=== PATIENT | female | born 2000 | race Two or more races ===

== ENCOUNTER 2024-10-21 15:06 | Outpatient (CLI) | payer MEDICAID, SELFPAY ==
[2024-10-21] VITALS (7 sets, daily range): BP systolic 131–141; BP diastolic 72–88; PULSE 81–92; RESP 18; TEMP 36.7; BMI 40.6
--- NOTE | 2024-10-21 15:10 | XR_ITS ---
Examination: Biophysical profile, ultrasound Date and time of exam: October 21, 2024 1518 hours INDICATIONS: -induced hypertension today Technique: Multiple transabdominal sonographic images of the pelvis abdomen obtained. Attention is directed to the breathing movement, gross body movement, amniotic fluid volume and tone. Findings: Amniotic fluid index 17.6 cm Total biophysical profile is 8 of 8. breathing movement is 2. Gross body movement is 2. tone is 2. Qualitative amniotic fluid volume is 2 Impression: Biophysical profile is 8 of 8.
[2024-10-21 16:01] LABS: Collection Type, Urine Clean Catch
[2024-10-21 16:21] LABS: Bilirubin,Urine Negative (Negative); Blood,Urine Negative (Negative); Clarity,Urine Turbid (Clear/Hazy); Color,Urine Yellow (Lt Yel-Yel); Glucose, Urine 4+ (Negative); Ketones,Urine Negative (Negative); Leukocyte Esterase,Urine Positive (Negative); Nitrite,Urine Negative (Negative); Protein,Urine Trace (Neg - Trace); RBC,Urine 3 /hpf (0-3); Specific Gravity,Urine 1.022 (1.001-1.035); Squamous Epithelial Cell,Urine 14 /hpf (0-5); Urobilinogen,Urine Negative mg/dL (0.0-1.0); WBC,Urine 27 /hpf (0-5)
[2024-10-21 16:33] LABS: Basophils % (Auto) 0 % (0-2.5); Eosinophils # (Auto) 0.1 Thou/mm3 (0.0-0.5); Eosinophils % (Auto) 1 % (0-10); Hemoglobin 11.2 g/dL (12.0-16.0); Immature Granulocytes % (Auto) 0 % (0-0); Immature Granulocytes Auto 0.02 Thou/mm3 (0.00-0.00); Lymphocytes # (Auto) 1.6 Thou/mm3 (1.0-4.8); Lymphocytes % (Auto) 22 % (10-50); Mean Corpuscular Hemoglobin 27.8 pg (25.0-35.0); Mean Corpuscular Volume 79 fL (80-100); Monocytes # (Auto) 0.6 Thou/mm3 (0.0-0.8); Monocytes % (Auto) 8 % (0-12); Neutrophils # (Auto) 5.1 Thou/mm3 (1.8-7.7); Neutrophils % (Auto) 69 % (37-80); Nucleated Red Blood Cell % 0 /100 WBC (0); Platelet Count 280 Thou/mm3 (140-440); RDW Standard Deviation 38.2 fL (36.4-46.3); Red Blood Count 4.03 Miln/mm3 (4.00-5.20); White Blood Count 7.3 Thou/mm3 (3.6-11.0)
[2024-10-21 16:51] LABS: INR 0.9 (0.9-1.3); Partial Thromboplastin Time 24.5 Seconds (22.0-36.0); Prothrombin Time 10.3 Seconds (9.0-12.2)
[2024-10-21 16:52] LABS: Alanine Aminotransferase 13 U/L (10-49); Albumin, Serum 3.8 gm/dL (3.5-5.0); Albumin/Globulin Ratio 1.5 (1.2-2.2); Alkaline Phosphatase 93 U/L (46-116); Anion Gap 10 (7-16); Aspartate Amino Transferase 17 U/L (0-34); BUN/Creatinine Ratio 14 Ratio (12-20); Bilirubin,Total 0.3 mg/dL (0.3-1.2); Blood Urea Nitrogen 7 mg/dL (9-23); Calcium 8.8 mg/dL (8.3-10.6); Carbon Dioxide 22.9 mMol/L (20.0-31.0); Chloride 104 mMol/L (98-107); Creatinine (Component) 0.5 mg/dL (0.6-1.3); Estimated Creatinine Clearance 211.2 mL/min (>60); Globulin 2.6 gm/dL (2.3-3.5); Glucose 125 mg/dL (74-106); LDH (Lactate Dehydrogenase) 149 U/L (120-246); Osmolality,Calculated 272 (275-295); Potassium 4.2 mMol/L (3.4-5.1); Sodium 137 mMol/L (136-145); Total Protein 6.4 gm/dL (5.7-8.2); Uric Acid 4.7 mg/dL (3.1-7.8); eGFR > 60 See Note
[2024-10-21 19:04] LABS: Fibrinogen 646 mg/dL (175-375)
== END 2024-10-21 17:10 | disposition home or self-care (01) ==
LOC: S4S1 15:06 → S4SX 15:07
PROVIDERS: Referring Provider Student in an Organized Health Care Education/Training Program; Visit Provider Student in an Organized Health Care Education/Training Program
DX: O26.893 Other specified pregnancy related conditions, third trimester (principal); R03.0 Elevated blood-pressure reading, without diagnosis of hypertension; Z3A.31 31 weeks gestation of pregnancy
CPT/HCPCS: 36415; 59025; 76819; 80053; 81001; 83615; 84550; 85025; 85384; 85610; 85730

== ENCOUNTER 2024-10-28 16:14 | Observation (INO) | payer MEDICAID, SELFPAY ==
[2024-10-28] VITALS (99 sets, daily range): BP systolic 116–176; BP diastolic 57–97; PULSE 68–97; RESP 16–99; TEMP 36.7–36.8; O2SAT 96–100; BMI 40.4
--- NOTE | 2024-10-28 16:29 | XR_ITS ---
Examination: Biophysical profile, ultrasound Date and time of exam: October 28, 2024 1713 hours INDICATIONS: Gestational diabetes diagnosis, elevated blood pressure diagnosis, -induced hypertension Technique: Multiple transabdominal sonographic images of the pelvis abdomen obtained. Attention is directed to the breathing movement, gross body movement, amniotic fluid volume and tone. Findings: Amniotic fluid index 20.2 cm Total biophysical profile is 8 of 8. breathing movement is 2. Gross body movement is 2. tone is 2. Qualitative amniotic fluid volume is 2 Impression: Biophysical profile is 8 of 8.
[2024-10-28 17:20] LABS: Collection Type, Urine Clean Catch
[2024-10-28 17:20] LABS: Basophils % (Auto) 0 % (0-2.5); Eosinophils % (Auto) 0 % (0-10); Hematocrit 33.9 % (36.0-46.0); Hemoglobin 11.7 g/dL (12.0-16.0); Immature Granulocytes % (Auto) 1 % (0-0); Immature Granulocytes Auto 0.04 Thou/mm3 (0.00-0.00); Lymphocytes # (Auto) 1.5 Thou/mm3 (1.0-4.8); Lymphocytes % (Auto) 19 % (10-50); Mean Corpuscular HGB Conc 34.5 g/dl (31.0-37.0); Mean Corpuscular Hemoglobin 28.1 pg (25.0-35.0); Mean Corpuscular Volume 81 fL (80-100); Monocytes # (Auto) 0.6 Thou/mm3 (0.0-0.8); Monocytes % (Auto) 8 % (0-12); Neutrophils # (Auto) 5.9 Thou/mm3 (1.8-7.7); Neutrophils % (Auto) 73 % (37-80); Nucleated Red Blood Cell % 0 /100 WBC (0); Platelet Count 346 Thou/mm3 (140-440); RDW Standard Deviation 40.4 fL (36.4-46.3); Red Blood Count 4.17 Miln/mm3 (4.00-5.20); White Blood Count 8.2 Thou/mm3 (3.6-11.0)
[2024-10-28 17:35] LABS: Bilirubin,Urine Negative (Negative); Blood,Urine Trace (Negative); Clarity,Urine Clear (Clear/Hazy); Color,Urine Yellow (Lt Yel-Yel); Glucose, Urine Negative (Negative); Ketones,Urine 2+ (Negative); Leukocyte Esterase,Urine Positive (Negative); Nitrite,Urine Negative (Negative); Protein,Urine 1+ (Neg - Trace); RBC,Urine 1 /hpf (0-3); Specific Gravity,Urine 1.029 (1.001-1.035); Squamous Epithelial Cell,Urine 13 /hpf (0-5); WBC,Urine 11 /hpf (0-5)
[2024-10-28 17:43] LABS: INR 0.9 (0.9-1.3); Partial Thromboplastin Time 24.7 Seconds (22.0-36.0); Prothrombin Time 10.3 Seconds (9.0-12.2)
[2024-10-28 18:16] LABS: Alanine Aminotransferase 12 U/L (10-49); Albumin, Serum 4.2 gm/dL (3.5-5.0); Albumin/Globulin Ratio 1.8 (1.2-2.2); Alkaline Phosphatase 102 U/L (46-116); Anion Gap 11 (7-16); Aspartate Amino Transferase 27 U/L (0-34); BUN/Creatinine Ratio 17 Ratio (12-20); Bilirubin,Total 0.3 mg/dL (0.3-1.2); Blood Urea Nitrogen 10 mg/dL (9-23); Calcium 9.4 mg/dL (8.3-10.6); Calcium (Corrected) 9.4 mg/dL (8.5-10.1); Carbon Dioxide 20.9 mMol/L (20.0-31.0); Chloride 103 mMol/L (98-107); Creatinine (Component) 0.6 mg/dL (0.6-1.3); Estimated Creatinine Clearance 175.3 mL/min (>60); Globulin 2.4 gm/dL (2.3-3.5); Glucose 83 mg/dL (74-106); LDH (Lactate Dehydrogenase) 175 U/L (120-246); Osmolality,Calculated 268 (275-295); Potassium 4.6 mMol/L (3.4-5.1); Sodium 135 mMol/L (136-145); Total Protein 6.6 gm/dL (5.7-8.2); Uric Acid 5.2 mg/dL (3.1-7.8); eGFR > 60 See Note
[2024-10-28 19:07] LABS: Fibrinogen 620 mg/dL (175-375)
[2024-10-28] MEDS: LABETALOL 100 MG TABLET 200 MG PO (19:35)
--- NOTE | 2024-10-28 20:49 | PD.LDHP ---
Documentation for date of: 10/28/24 OB Labor/Induct. HPI History of Present Illness History of present illness: 24 y/o @32W6D, was sent from clinic for BP measurements. Pt is a chronic HTN, admits of not being regularly taking [id number] BID which was prescribed by her midwive. Denies any headache, SOB, epigastric pain. Patient also was started on metformin for GDM. No contraction leaking bleeding History of Present Dating criteria: LMP confirmed by 1st trimester US Adequate Care: Yes Labs Narrative: GTT abnormal preclampsia labs wnl( incraese in Liver enzymes but not double) Meds Home Medications and Allergies Home Medications ?Medication ?Instructions ?Recorded ?Confirmed ?Type folic acid 1 mg tablet 1 mg PO QDAY 10/28/24 10/28/24 History labetalol 100 mg tablet 100 mg PO BID 10/28/24 10/28/24 History metformin 500 mg tablet 500 mg PO QDAY 10/28/24 10/28/24 History pren vit comb.1-iron cb-FA-DSS 90 1 tab PO QDAY 10/28/24 10/28/24 History mg-1 mg-50 mg tablet Allergies Allergy/AdvReac Type Severity Reaction Status Date / Time NKA Allergy Unknown Uncoded 10/28/24 16:49 OB Exam Physical Exam Vital signs: Temp Pulse Resp BP Pulse Ox 98.0 F 89 16 139/81 H 98 10/28/24 16:15 10/28/24 20:29 10/28/24 16:15 10/28/24 20:29 10/28/24 20:47 Constitutional Constitutional: no acute distress Routine HEENT Exam Head: Present normocephalic and atraumatic Eye: Present EOMI and PERRL ENT: Present mucous membranes moist Routine Neck Exam Neck: Present supple and trachea midline Routine Cardiovascular Exam Cardiovascular: Present RRR Routine Abdominal Exam Abdominal: Present soft and normoactive bowel sounds Detailed Labor and Delivery Exam Comments: 1638 audible prolonged decel by the triage nurse however after that the FHT are category 1 BPP 8/8 Routine Extremities Exam Extremities: Present full ROM Routine Skin Exam Skin: Present intact, dry and warm Routine Neurological Exam Neurological: Present alert, oriented X3 and CN II-XII intact Routine Psychiatric Exam Psychiatric: Present normal affect and normal thought process OB Results Labs 10/28/24 17:11 01/28/25 17:11 Labs: Short CBC 10/28/24 Range/Units 17:11 WBC 8.2 (3.6-11.0) Thou/mm3 Hgb 11.7 L (12.0-16.0) g/dL Hct 33.9 L (36.0-46.0) % Plt Count 346 D (140-440) Thou/mm3 BMP 10/28/24 17:11 Sodium 135 L Potassium 4.6 Chloride 103 Carbon Dioxide 20.9 BUN 10 Creatinine 0.6 Glucose 83 Calcium 9.4 Liver Function 10/28/24 Range/Units 17:11 Total Bilirubin 0.3 (0.3-1.2) mg/dL AST 27 (0-34) U/L ALT 12 (10-49) U/L Alkaline Phosphatase 102 (46-116) U/L Albumin 4.2 (3.5-5.0) gm/dL Urine 10/28/24 Range/Units 16:40 Urine Color Yellow (Lt Yel-Yel) Urine Clarity Clear (Clear/Hazy) Urine pH 6.0 (5.0-7.0) Ur Specific [place] 1.029 (1.001-1.035) Urine Protein 1+ A (Neg - Trace) Urine Glucose (UA) Negative (Negative) Impressions Impression: 24 Y/O @32w6d, admitted for observation CHTN, labetalol increased to 200 BID Questionable Severe BPx2 ( Cuff size inappropriate) preclampsia lab wnl GDM on metformin OB Assessment & Plan Additional Plan Additional Plan Comment: BP monitoring Continuos FHT monitoring
[2024-10-28] MEDS: metFORMIN 500 MG TABLET PO (21:12)
[2024-10-29] VITALS (112 sets, daily range): BP systolic 112–155; BP diastolic 56–86; PULSE 67–90; RESP 16; TEMP 36.7; O2SAT 92–100
[2024-10-29] MEDS: LABETALOL 100 MG TABLET 200 MG PO (04:00)
--- NOTE | 2024-10-29 07:57 | ESPR_ITS ---
Documentation for date of: 10/29/24 OB Labor Progress Note Pelvic Exam Comments: Pelvic exam deferred Contractions Contraction duration: None Status status: Category l Comments: Strip reviewed since admission baby is 130s and reactive with 15 x 15 beat accelerations. Appropriate for gestational age. 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 admitted overnight managed by Dr. Montanez 23-hour obs for an audible deceleration. She had an ultrasound revealing an GARRICK of 20 biophysical profile of 8/8 her blood pressures have stabilized overnight her labs are normal the baby's continuous heart tracing is been reactive she will be discharged home at this point. Patient will follow-up in the clinic. She is on labetalol 200 mg p.o. twice daily.
--- NOTE | 2024-10-29 08:02 | PD.LDDS ---
DS: Providers Provider Date of admission: 10/28/24 16:14 Primary care physician: Physician No Primary/Family Admitting Provider: Katiuska Troy MD Attending Provider on Admission: Beryl Werner MD Attending Provider on DC: Beryl Werner MD Discharging Provider: Beryl Werner MD Anticipated date of discharge: 10/29/24 DS: Diagnosis Discharge Diagnosis (1) 32 weeks gestation of : Status: Acute (2) Gestational diabetes mellitus (GDM): Status: Acute (3) induced hypertension, antepartum: Status: Acute Problem List Completed Was Problem List Reviewed/Reconciled?: Yes Summary/Hosp Course Brief History: 24 y/o @32W6D, was sent from clinic for BP measurements. Pt is a chronic HTN, admits of not being regularly taking BID which was prescribed by her midwive. Denies any headache, SOB, epigastric pain. Patient also was started on metformin for GDM. No contraction leaking bleeding Status at Discharge Functional status at discharge: independent ambulation Overall status at discharge: patient is back to baseline Time Spent with Patient Time attestation: Total time spent providing and/or coordinating discharge services: Time spent: Less than 30 minutes Specific discharge activities: Patient was monitored overnight with continuous monitoring for approximately 14 hours. During her observation stay she had lab work performed biophysical profile and ultrasound for an ultrasound for fluid. Patient's patient was started on labetalol for elevated blood pressure and this was called in by Dr. Troy. She was given strict discharge instructions including to return for severe headaches, visual changes, right upper quadrant pain, shortness of breath or chest pain. Patient was to come back in for decreased movement. She was discharged home to be followed up very closely in clinic and here on labor and delivery with more frequent visits and nonstress tests and ultrasounds. She was told -induced hypertension can progress to mild or severe preeclampsia. At this time there are no signs of preeclampsia present. Patient was told she might have to be delivered early induced or have a if she becomes preeclamptic. All questions were answered. Exam Vital Signs Temp Pulse Resp BP Pulse Ox 98.1 F 74 16 112/56 L 99 10/29/24 07:23 10/29/24 07:54 10/29/24 04:00 10/29/24 07:54 10/29/24 07:56 Narrative Exam Patient is alert and oriented x 3 fundus is firm nontender. Remainder of exam deferred at this time. Discharge Plan Plan Patient Disposition: HOME (Self Care) Patient condition on transfer: Stable Prescriptions/Referrals Prescriptions/Med Rec: New metformin 500 mg Tablet 500 mg PO BIDAC Qty: 90 0RF labetalol 100 mg Tablet 200 mg PO TID Qty: 90 0RF Continued folic acid 1 mg tablet 1 mg PO QDAY No Action ciprofloxacin HCl [Cipro] 500 mg tablet 500 mg PO BID Qty: 14 0RF metformin 500 mg tablet 500 mg PO QDAY labetalol 100 mg tablet 100 mg PO BID pren vit comb.1-iron cb-FA-DSS 90-1-50 mg tablet 1 tab PO QDAY Referrals: No Primary/Family,Physician [Primary Care Provider] - Patient/Caregiver Discharge Instructions Education Materials: Gestational Hypertension Print Language: Venezuelan Stand Alone Forms: Grace Award Info., Patient Portal Info Letter, Work/Release Restrictions Discharge Order Discharge Orders: Discharge (Routine); Ordered 10/29/24 Ordered By: Beryl Werner Planned Discharge Date 10/29/24 (2) Gestational diabetes mellitus (GDM) Qualifiers: Gestational diabetes mellitus control: oral hypoglycemic-controlled Trimester: third trimester Qualified Code(s): O24.415 - Gestational diabetes mellitus in , controlled by oral hypoglycemic drugs
== END 2024-10-29 08:40 | disposition home or self-care (01) ==
PROVIDERS: Nurse Practitioner Women's Health; Admitting Provider Student in an Organized Health Care Education/Training Program; Visit Provider Obstetrics & Gynecology
DX: O13.3 Gestational [pregnancy-induced] hypertension without significant proteinuria, third trimester (principal); O24.415 Gestational diabetes mellitus in pregnancy, controlled by oral hypoglycemic drugs; Z3A.32 32 weeks gestation of pregnancy
CPT/HCPCS: 36415; 59025; 59899; 76819; 80053; 81001; 83615; 84550; 85025; 85384; 85610; 85730; A9270

== ENCOUNTER 2024-11-07 22:25 | Emergency (ER) | payer MEDICAID, SELFPAY ==
[2024-11-07 22:27] VITALS: BMI 39.4
[2024-11-07 23:16] VITALS: BP 135/85; PULSE 89; RESP 20; TEMP 36.9; O2SAT 99
[2024-11-07] MEDS: HYDROcodone/APAP 5/325 TABLET 1 TAB PO (23:40)
--- NOTE | 2024-11-08 01:12 | PD.EDEAR ---
ED Ear RME/HPI General Chief complaint: Ear Stated complaint: LEFT EAR PAIN Time Seen by Provider: 11/07/24 23:32 Arrival date/time: 11/07/24 22:25 24F with no significant PMH presents to ED with several days of L ear pain. Patient has been taking amoxicillin. Patient is currently and could only take Tylenol, which is not enough. Limitations: no limitations Related Data Home Medications ?Medication ?Instructions ?Recorded ?Confirmed folic acid 1 mg tablet 1 mg PO QDAY 10/28/24 10/28/24 labetalol 100 mg tablet 100 mg PO BID 10/28/24 10/28/24 metformin 500 mg tablet 500 mg PO QDAY 10/28/24 10/28/24 pren vit comb.1-iron cb-FA-DSS 90 1 tab PO QDAY 10/28/24 10/28/24 mg-1 mg-50 mg tablet Previous Rx's ?Medication ?Instructions ?Recorded ciprofloxacin HCl 500 mg tablet 500 mg PO BID #14 tabs 07/03/24 (Cipro) labetalol 100 mg tablet 200 mg (2 x 100 mg) PO TID #90 tabs 10/29/24 metformin 500 mg tablet 500 mg PO BIDAC #90 tabs 10/29/24 Allergies Allergy/AdvReac Type Severity Reaction Status Date / Time No Known Allergies Allergy Unverified 10/29/24 08:53 Review of Systems Review of Systems Systems Reviewed: All systems reviewed, normal except as documented Constitutional Constitutional: Reports system reviewed and no additional complaints, except as documented, Denies fever(s) and Denies headache(s) ENT Ears, Nose, Mouth, and Throat: Reports as per HPI, Denies disequilibrium, Reports otalgia and Denies headache(s) Cardiovascular Cardiovascular: Reports system reviewed and no additional complaints, except as documented, Denies chest pain and Denies dyspnea Respiratory Respiratory: Reports system reviewed and no additional complaints, except as documented, Denies cough and Denies dyspnea Gastrointestinal Gastrointestinal: Reports system reviewed and no additional complaints, except as documented, Denies abdominal pain, Denies nausea and Denies vomiting Neurologic Neurologic: Reports system reviewed and no additional complaints, except as documented, Denies confusion, Denies disequilibrium and Denies headache(s) Psychiatric Psychiatric: Denies confusion Past Medical History Social History SMOKING STATUS: Never smoker ED Exam General Limitations: Present no limitations General appearance: Present alert and in no apparent distress Head Head exam: Present atraumatic Eye Eye exam: Present normal appearance, PERRL and EOMI ENT ENT exam: Present normal oropharynx and mucous membranes moist Expanded ENT Exam TM/Canal exam: Left TM: erythema and bulging Neck Neck exam: Present normal inspection, full ROM and trachea midline Chest Chest inspection: Present normal inspection and symmetric chest wall rise Respiratory Respiratory exam: Present normal lung sounds bilaterally Cardiovascular Cardiovascular exam: Present regular rate, normal rhythm and normal heart sounds Abdominal Exam Abdominal exam: Present soft and normal bowel sounds Extremities Exam Extremities exam: Present normal inspection and full ROM Back Exam Back exam: Present normal inspection and full ROM Neurological Exam Neurological exam: Present alert, oriented X3 and CN II-XII intact Psychiatric Psychiatric exam: Present normal affect and normal mood Skin Skin exam: Present warm, dry, intact and normal color Course Quality Measures none Orders Category Date Time Status HYDROcodone*/APAP 5/325 [[place] 5/325] Med 11/07/24 23:33 Discontinued 1 tab PO X1 ONE Vital Signs Vital signs: Vital Signs Temperature 98.5 F 11/07/24 23:16 Pulse Rate 89 11/07/24 23:16 Respiratory Rate 20 11/07/24 23:16 Blood Pressure 135/85 H 11/07/24 23:16 Pulse Oximetry (%) 99 11/07/24 23:16 Oxygen Delivery Method Room Air 11/07/24 23:16 O2 at 99% on RA and WNLs Ear MDM Narrative MDM Narrative:: 24F with no significant PMH presents to ED with several days of L ear pain. Patient has been taking amoxicillin. Patient is currently and could only take Tylenol, which is not enough. Physical exam reveals L red and bulging TM, but otherwise clear ENT and lungs. Patient is afebrile, calm, and alert. Patient is okay with single dose of [place]. Patient data External records reviewed:: [facility] previous records Clinical information provided by:: patient Social determinants that could affect healthcare access:: none Patient has the following chronic illnesses:: none How is presenting disease/condition affected by chronic disease/condition?: no chronic disease Evaluation data The following diagnostics were reviewed and interpreted by me:: other (specify) (none) Lab and/or radiology exams considered but not ordered:: not ordered Interpretation Summary: n/a Medications / Prescriptions Medications or Prescriptions considered but not ordered:: ordered Medication administrations:: Medication Administration History Discontinued Medications Hydrocodone Bitart/Acetaminophen (Hydrocodone/Apap 5/325 Tablet) 1 tab PO X1 ONE Stop: 11/07/24 23:34 Last Admin: 11/07/24 23:40 Dose: 1 tab Documented By: HALIEL above Consultations Consultation(s) initiated? (list below): No Diagnosis Ear Differential Diagnosis: otitis externa, otitis media, foreign body in ear, ruptured TM and cerumen impaction Most likely diagnosis given after review of the tests above:: OM Admission Indicated Admission indicated?: not indicated Admission Request Was there a request for admission?: No Disposition Plan Disposition Plan: Discharge Discharge Attestation Discharge Attestation: The patient and all family members were given an opportunity to ask questions and understood the discharge instructions. Discharge instructions specifically effects, indications for sooner follow up or return to the emergency department, and the expected course of current diagnosis. Patient condition: Stable Discharge Plan Plan Patient Disposition: HOME (Self Care) Disposition Comment: Stable Prescriptions/Referrals Prescriptions/Med Rec: No Action ciprofloxacin HCl [Cipro] 500 mg tablet 500 mg PO BID Qty: 14 0RF metformin 500 mg tablet 500 mg PO QDAY labetalol 100 mg tablet 100 mg PO BID folic acid 1 mg tablet 1 mg PO QDAY pren vit comb.1-iron cb-FA-DSS 90-1-50 mg tablet 1 tab PO QDAY metformin 500 mg Tablet 500 mg PO BIDAC Qty: 90 0RF labetalol 100 mg Tablet 200 mg PO TID Qty: 90 0RF Problem List Clinical Impression: Otitis media Patient/Caregiver Discharge Instructions Additional Instructions: Please follow-up with PCP within 24-48 hours and return immediately if symptoms worsen. Finish ABX. Print Language: Tamazight Stand Alone Forms: Patient Portal Info Letter PA/DRAWER MAKER Supervising Physician FREDERIC/DRAWER MAKER Supervising Physician: Dr. Zacarias
== END 2024-11-07 23:41 | disposition home or self-care (01) ==
LOC: SERX 11-08 01:57
PROVIDERS: Emergency Provider Emergency Medicine; PCP Family Medicine
DX: O99.891 Other specified diseases and conditions complicating pregnancy (principal); H66.92 Otitis media, unspecified, left ear
CPT/HCPCS: 99283; A9270

== ENCOUNTER 2024-11-13 09:57 | Outpatient (RCR) | payer MEDICAID, SELFPAY ==
--- NOTE | 2024-11-10 10:27 | XR_ITS ---
Examination: Biophysical profile, ultrasound Date and time of exam: November 10, 2024 1033 hours INDICATIONS: -induced hypertension diagnoses, diagnosis gestational diabetes Technique: Multiple transabdominal sonographic images of the pelvis abdomen obtained. Attention is directed to the breathing movement, gross body movement, amniotic fluid volume and tone. Findings: Amniotic fluid index 9.0 cm Total biophysical profile is 8 of 8. breathing movement is 2. Gross body movement is 2. tone is 2. Qualitative amniotic fluid volume is 2 Impression: Biophysical profile is 8 of 8.
[2024-11-10 11:33] VITALS: BP 137/82; PULSE 89; RESP 18; TEMP 36.7
--- NOTE | 2024-11-13 10:12 | XR_ITS ---
Examination: Biophysical profile, ultrasound Date and time of exam: November 13, 2024 1105 hours INDICATIONS: Diagnosis -induced hypertension, diagnosis gestational diabetes Technique: Multiple transabdominal sonographic images of the pelvis abdomen obtained. Attention is directed to the breathing movement, gross body movement, amniotic fluid volume and tone. Findings: Amniotic fluid index 12.5 cm Total biophysical profile is 8 of 8. breathing movement is 2. Gross body movement is 2. tone is 2. Qualitative amniotic fluid volume is 2 Impression: Biophysical profile is 8 of 8.
[2024-11-13 12:34] VITALS: BP 127/74; PULSE 88; RESP 18; TEMP 36.7
== END 2024-11-13 23:59 | disposition home or self-care (01) ==
LOC: S4S1 09:57
PROVIDERS: PCP Family Medicine; Referring Provider Nurse Practitioner Women's Health; Visit Provider Nurse Practitioner Women's Health
DX: O13.3 Gestational [pregnancy-induced] hypertension without significant proteinuria, third trimester (principal); Z3A.35 35 weeks gestation of pregnancy
CPT/HCPCS: 59025; 76819

== ENCOUNTER 2024-11-17 02:41 | Inpatient (IN) | payer MEDICAID, SELFPAY ==
[2024-11-17] VITALS (20 sets, daily range): BP systolic 129–171; BP diastolic 69–92; PULSE 66–799; RESP 16–98; TEMP 36.6–36.9; O2SAT 98–99; BMI 39.6
[2024-11-17 04:15] LABS: ROM Kit Lot # 57809118; ROM Swab Mixed By: MARTB3; Swb Mxed in Solvent 1 min? Yes
[2024-11-17 04:16] LABS: Rupture of Fetal Membranes Positive (Negative)
[2024-11-17] MEDS: Ampicillin Inj 2,000 MG in SODIUM CHLORIDE 0.9% (P) 100 ML 200 MG IV (05:15)
[2024-11-17] MEDS: RINGERS LACTATED 1000 ML 1,000 ML 125 ML IV (05:15)
[2024-11-17 05:52] LABS: Basophils % (Auto) 0 % (0-2.5); Eosinophils # (Auto) 0.1 Thou/mm3 (0.0-0.5); Eosinophils % (Auto) 1 % (0-10); Hematocrit 34.3 % (36.0-46.0); Hemoglobin 11.7 g/dL (12.0-16.0); Immature Granulocytes % (Auto) 0 % (0-0); Immature Granulocytes Auto 0.03 Thou/mm3 (0.00-0.00); Lymphocytes # (Auto) 2.1 Thou/mm3 (1.0-4.8); Lymphocytes % (Auto) 22 % (10-50); Mean Corpuscular HGB Conc 34.1 g/dl (31.0-37.0); Mean Corpuscular Hemoglobin 27.8 pg (25.0-35.0); Mean Corpuscular Volume 82 fL (80-100); Monocytes # (Auto) 0.6 Thou/mm3 (0.0-0.8); Monocytes % (Auto) 7 % (0-12); Neutrophils # (Auto) 6.6 Thou/mm3 (1.8-7.7); Neutrophils % (Auto) 70 % (37-80); Nucleated Red Blood Cell % 0 /100 WBC (0); Platelet Count 321 Thou/mm3 (140-440); RDW Standard Deviation 40.2 fL (36.4-46.3); Red Blood Count 4.21 Miln/mm3 (4.00-5.20); White Blood Count 9.4 Thou/mm3 (3.6-11.0)
[2024-11-17 05:55] LABS: Amphetamine/Metham Scrn,Ur OB Negative (Negative); Benzoylecgonine Screen, Ur OB Negative (Negative); Opiate Screen,Urine OB Negative (Negative); THC Screen,Urine OB Negative (Negative)
[2024-11-17 06:27] LABS: Alanine Aminotransferase 44 U/L (10-49); Albumin, Serum 3.9 gm/dL (3.5-5.0); Albumin/Globulin Ratio 1.3 (1.2-2.2); Alkaline Phosphatase 176 U/L (46-116); Anion Gap 11 (7-16); Aspartate Amino Transferase 29 U/L (0-34); BUN/Creatinine Ratio 24 Ratio (12-20); Bilirubin,Total 0.5 mg/dL (0.3-1.2); Blood Urea Nitrogen 12 mg/dL (9-23); Calcium 10.4 mg/dL (8.3-10.6); Calcium (Corrected) 10.5 mg/dL (8.5-10.1); Carbon Dioxide 21.4 mMol/L (20.0-31.0); Chloride 104 mMol/L (98-107); Creatinine (Component) 0.5 mg/dL (0.6-1.3); Estimated Creatinine Clearance 208.2 mL/min (>60); Globulin 2.9 gm/dL (2.3-3.5); Glucose 118 mg/dL (74-106); Osmolality,Calculated 272 (275-295); Sodium 136 mMol/L (136-145); Total Protein 6.8 gm/dL (5.7-8.2); Uric Acid 5.8 mg/dL (3.1-7.8); eGFR > 60 See Note
[2024-11-17 06:43] LABS: Syphilis Nonreactive (Nonreactive)
--- NOTE | 2024-11-17 06:51 | PD.LDHP ---
Documentation for date of: 11/17/24 OB Labor/Induct. HPI History of Present Illness Chief complaint: heard a pop, leakage of fluid, contractions : 1 History of sections: No History of : No Date of last menstrual period: 03/12/24 GLADYS: 12/17/24 Gestational Age (weeks): 35 Gestational Age (days): 5 Gestational age based on last menstrual period: 35 History of present illness: Patient presents for loss of fluid, clear, that occurred at 0200 on 11/17. [place] a pop. Also having cramping/ctx. No vaginal bleeding. Normal movement. No fevers/chills. History of Present Dating criteria: LMP confirmed by 1st trimester US Adequate Care: Yes Narrative: -Obesity in , starting BMI 38 -Pre-diabetes A1c 6.1 then A2GDM based on elevated 1hr and 2hr glucose tests, started on metformin 500mg PO BID. -GHTN on labetalol 100mg PO BID and ASA 81mg PO QD Labs Maternal Blood Type: O Pos Labs: Positive: Rubella Titre, Negative: RPR, Hepatitis B, HIV, Chlamydia and Gonorrhea and Unknown: Group Beta Strep Review of Systems Review of Systems Narrative Review of Systems: Review of Systems Systems Reviewed: All systems reviewed, normal except as documented Constitutional Constitutional: Denies body ache(s), Denies chills, Denies fever(s) and Denies headache(s) ENT Ears, Nose, Mouth, and Throat: Denies headache(s) and Denies vertigo Cardiovascular Cardiovascular: Denies chest pain, Denies palpitations, Denies dyspnea and Denies syncope Respiratory Respiratory: Denies cough, Denies dyspnea Gastrointestinal Gastrointestinal: Denies nausea and Denies vomiting Neurologic Neurologic: Denies convulsions, Denies headache(s), Denies other visual disturbances, Denies syncope and Denies vertigo Past Medical History Surgical History SURGICAL: Negative Section OTHER SURGICAL HX: denies Social History SOCIAL: No ETOH, tobacco or illicit drug use Past Medical History Comments PMH COMMENT: -Obesity, starting BMI 38 -Pre-diabetes A1c 6.1 Meds Home Medications and Allergies Home Medications ?Medication ?Instructions ?Recorded ?Confirmed ?Type folic acid 1 mg tablet 1 mg PO QDAY 10/28/24 10/28/24 History labetalol 100 mg tablet 100 mg PO BID 10/28/24 10/28/24 History metformin 500 mg tablet 500 mg PO QDAY 10/28/24 10/28/24 History pren vit comb.1-iron cb-FA-DSS 90 1 tab PO QDAY 10/28/24 10/28/24 History mg-1 mg-50 mg tablet Allergies Allergy/AdvReac Type Severity Reaction Status Date / Time No Known Allergies Allergy Unverified 10/29/24 08:53 OB Exam Physical Exam Vital signs: Pulse BP 81 164/88 H 11/17/24 06:46 11/17/24 06:46 Narrative: General: well developed, well nourished, no acute distress, conversant Cardiac: normal heart rate Lungs: breathing without distress Abdomen: soft, gravid, non-tender, no rebound or guarding Extremities: no pain with palpation of calves Detailed Labor and Delivery Exam Dilation (cm): 5 Effacement (%): 80 Cervix position: mid station: -2 Presentation: Vertex Membranes: ruptured (grossly ruptured, clear) Amniotic fluid: clear monitor accelerations: 15x15 monitor decelerations: None FDC variability: Moderate (11-25) Contraction frequency (min): q3-5min OB Results Labs 11/17/24 05:15 11/17/24 05:15 Labs: Short CBC 11/17/24 Range/Units 05:15 WBC 9.4 (3.6-11.0) Thou/mm3 Hgb 11.7 L (12.0-16.0) g/dL Hct 34.3 L (36.0-46.0) % Plt Count 321 (140-440) Thou/mm3 BMP 11/17/24 05:15 Sodium 136 Potassium 4.0 Chloride 104 Carbon Dioxide 21.4 BUN 12 Creatinine 0.5 L Glucose 118 H Calcium 10.4 Liver Function 11/17/24 Range/Units 05:15 Total Bilirubin 0.5 (0.3-1.2) mg/dL AST 29 (0-34) U/L ALT 44 (10-49) U/L Alkaline Phosphatase 176 H (46-116) U/L Albumin 3.9 (3.5-5.0) gm/dL OB Assessment & Plan Assessment and Plan (1) premature rupture of membranes (PPROM) with onset of labor within 24 hours of rupture in third trimester, antepartum: Status: Acute Assessment and plan: Patient is a 24yo with SIUP at 35&5wk presenting in active pre-term labor with PPROM, clear, 0200 on 11/17/24. Grossly ruptured. Regular/painful contractions, SCE: 580/-2. Vitals wnl, benign exam. Reassuring assessment. Good PNC with [facility]. Records that are present in chart were reviewed. Normal NIPT. PMhx/ complicated by: -Obesity in , starting BMI 38 -Pre-diabetes, A1c 6.1 then A2GDM based on elevated 1hr and 2hr glucose tests, started on metformin 500mg PO BID. -GHTN on labetalol 100mg PO BID and ASA 81mg PO QD Plan: -Admit to L&D -Establish IV, routine labs -CEFM -Clear liquid diet -Compensation Associate/consent re: -GBS status unknown: Ampicillin per protocol -Anticipate -Pediatric team notified of impending PTD -Safe to proceed (2) labor in third trimester: Status: Acute (3) Gestational diabetes mellitus (GDM): Status: Acute (4) induced hypertension, antepartum: Status: Acute (5) Obesity affecting : Status: Acute (2) labor in third trimester Qualifiers: labor delivery status: with delivery in third trimester Fetus number: single or unspecified fetus Qualified Code(s): O60.14X0 - labor third trimester with delivery third trimester, not applicable or unspecified (3) Gestational diabetes mellitus (GDM) Qualifiers: Gestational diabetes mellitus control: oral hypoglycemic-controlled Trimester: third trimester Qualified Code(s): O24.415 - Gestational diabetes mellitus in , controlled by oral hypoglycemic drugs (5) Obesity affecting Qualifiers: Trimester: third trimester Obesity type affecting : other obesity Qualified Code(s): O99.213 - Obesity complicating , third trimester; E66.89 - Other obesity not elsewhere classified
[2024-11-17] MEDS: LIDOCAINE HCL 1% 20 ML VIAL INFL (07:15)
[2024-11-17] MEDS: MISOPROSTOL 200 mCg TABLET 800 MCG PR (07:30)
[2024-11-17 07:42] LABS: INR 0.9 (0.9-1.3); Partial Thromboplastin Time 28.3 Seconds (22.0-36.0); Prothrombin Time 9.9 Seconds (9.0-12.2)
[2024-11-17 07:57] LABS: Fibrinogen 755 mg/dL (175-375)
--- NOTE | 2024-11-17 08:15 | OBDSUM_ITS ---
Data (Martin) Data Para: 0 Delivery Data (Martin) Labor Data ROM Date: 11/17/24 ROM Time: 02:00 Rupture Type: SROM Delivery Data Labor Onset Stage 1 Date: 11/17/24 Labor Onset Stage 1 Time: 00:45 Labor Onset Stage 2 Date: 11/17/24 Labor Onset Stage 2 Time: 06:55 Delivery Date: 11/17/24 Delivery Time: 07:10 Placenta Delivery Date: 11/17/24 Placenta Delivery Time: 07:15 Delivered by: Sarai Marroquin Delivery nurse: Shona Saleem Other staff at delivery: 2nd Nurse Other staff at delivery: Margarita Licona Delivery Method Delivery: Vaginal Delivery Type: Spontaneous Anesthesia Type Primary Anesthesia: None EBL Estimated blood loss (ml): 300 Additional Procedures Tyler is a 24yo [id number] s/p uncomplicated at 35&5wk after presenting in active pre-term labor/with PPROM, delivering at 0710 on 11/17/2024. On presentation, SCE was 5/80/-2. She progressed rapidly to C/C/0 at which point she began pushing. She was not able to receive an epidural. As fetus was descending with pushes, FHR went down to the 60's. I called for a vacuum, but before it arrived, with the next two contractions patient pushed phenomenally well and infant's head delivered OA, restituted PERI. Left anterior shoulder delivered easily followed by posterior shoulder and corpus. After a few seconds, had spontaneous cry and was vigorous. Apgars 8/9. Facilities Planner Dr. [place] was present for delivery. placed on maternal abdomen where nose/mouth were suctioned and infant dried/stimulated. After 1 minute, cord was clamped x2 and cut by FOB. Cord blood collected for typing. With fundal massage and cord traction, placenta delivered spontaneously and intact with 3 vessel centrally inserted cord. Bimanual massage performed and IV pitocin given per protocol with fundus then firm at u-2cm and hemostasis noted. Inspection of perineum and vagina revealed bilateral labial lacerations and a edwina-urethral laceration which were repaired in routine fashion with 4-0 vicryl after anesthetizing with 1% lidocaine- total reapproximation and hemostasis achieved. (Catheter was placed within the urethra during repair of edwina-urethral laceration to ensure that the urethral opening was not sutured, catheter immediately removed after.) Small trickle of blood, so sweep just within cervix/WILLEM performed which retrieved a small amount of clot. 800mcg cytotec placed SC as prophylaxis against future bleeding. All counts correct x2. Mom and infant were doing well when I left the room. Sarai Marroquin MD Data (Martin) [place] Data Infant Gender: Male Infant Weight Grams: 2820 1 Minute Total: 8 5 Minute Total: 9
[2024-11-17] MEDS: DOCUSATE SOD 100 MG CAPSULE PO ×2 (08:50→20:59)
[2024-11-17] MEDS: IBUPROFEN TAB 400 MG TABLET 800 MG PO (08:50)
[2024-11-17] MEDS: LABETALOL 100 MG TABLET PO ×2 (08:50→20:59)
[2024-11-17] MEDS: BENZO/LANO/ALOE (Dermoplast) 60 GM CAN 1 SPRAY TOP (10:25)
--- NOTE | 2024-11-17 11:03 | PC.NURSE ---
0940 IV SALINE LOCKED
[2024-11-17 14:42] LABS: Basophils % (Auto) 0 % (0-2.5); Eosinophils % (Auto) 0 % (0-10); Hematocrit 32.9 % (36.0-46.0); Hemoglobin 11.4 g/dL (12.0-16.0); Immature Granulocytes % (Auto) 0 % (0-0); Immature Granulocytes Auto 0.04 Thou/mm3 (0.00-0.00); Lymphocytes # (Auto) 1.7 Thou/mm3 (1.0-4.8); Lymphocytes % (Auto) 11 % (10-50); Mean Corpuscular HGB Conc 34.7 g/dl (31.0-37.0); Mean Corpuscular Hemoglobin 28.1 pg (25.0-35.0); Mean Corpuscular Volume 81 fL (80-100); Monocytes # (Auto) 0.8 Thou/mm3 (0.0-0.8); Monocytes % (Auto) 5 % (0-12); Neutrophils # (Auto) 12.9 Thou/mm3 (1.8-7.7); Neutrophils % (Auto) 84 % (37-80); Nucleated Red Blood Cell % 0 /100 WBC (0); Platelet Count 314 Thou/mm3 (140-440); RDW Standard Deviation 41.4 fL (36.4-46.3); Red Blood Count 4.06 Miln/mm3 (4.00-5.20); White Blood Count 15.5 Thou/mm3 (3.6-11.0)
[2024-11-18] VITALS: BP 136/83; PULSE 80; RESP 18; TEMP 36.8; O2SAT 98
[2024-11-18 04:55] VITALS: BP 118/62; PULSE 78; RESP 16; TEMP 36.5; O2SAT 98
[2024-11-18 08:00] VITALS: BP 124/84; PULSE 72; RESP 16; TEMP 36.6; O2SAT 98
[2024-11-18 08:10] VITALS: BP 124/84; PULSE 72
[2024-11-18] MEDS: LABETALOL 100 MG TABLET PO (08:10)
[2024-11-18] MEDS: DOCUSATE SOD 100 MG CAPSULE PO (08:11)
--- NOTE | 2024-11-18 08:56 | PD.LDDS ---
DS: Providers Provider Date of admission: 11/17/24 05:34 Primary care physician: Physician No Primary/Family Admitting Provider: Sarai Marroquin MD Attending Provider on Admission: Sarai Marroquin MD Consults: 11/17/24 08:01 Referral Routine Comment: Attending Provider on DC: Sarai Marroquin MD Discharging Provider: Sarai Marroquin MD DS: Diagnosis Discharge Diagnosis (1) premature rupture of membranes (PPROM) with onset of labor within 24 hours of rupture in third trimester, antepartum: Status: Acute (2) labor in third trimester: Status: Acute (3) Obesity affecting : Status: Acute (4) Gestational diabetes mellitus (GDM): Status: Acute (5) induced hypertension, antepartum: Status: Acute Problem List Completed Was Problem List Reviewed/Reconciled?: Yes Summary/Hosp Course Brief History: Tyler is a 24yo [id number] s/p uncomplicated at 35&5wk after presenting in active pre-term labor/with PPROM, delivering at 0710 on 11/17/2024. She has had an uncomplicated course, meeting all milestones and feels ready for discharge home. She is ambulating without lightheadedness, tolerating regular diet no n/v, spontaneously voiding without issue. She has no chest pain or shortness of breath. No fevers or chills. Minimal, appropriate discomfort. Vitals normal, benign exam. Hemodynamically stable with no evidence of infection. PP Hgb 11.4. Baby in NICU for prematurity, patient will come back and forth to visit. Status at Discharge Functional status at discharge: independent ambulation Overall status at discharge: patient is back to baseline Time Spent with Patient Time attestation: Total time spent providing and/or coordinating discharge services: Exam Vital Signs Temp Pulse Resp BP Pulse Ox O2 Del Method 98 F 72 16 124/84 98 Room Air 11/18/24 08:00 11/18/24 08:10 11/18/24 08:00 11/18/24 08:10 11/18/24 08:00 11/18/24 08:00 Narrative Exam General: well developed, well nourished, no acute distress, conversant Cardiac: normal heart rate Lungs: breathing without distress Abdomen: soft, obese, post-gravid, non-tender, no rebound or guarding, Fundus firm at u-3cm. Extremities: no pain with palpation of calves, trace edema of BLE Discharge Plan Plan Patient Disposition: HOME (Self Care) Patient condition on transfer: Stable Prescriptions/Referrals Prescriptions/Med Rec: New docusate sodium 100 mg Capsule 100 mg PO BID 10 Days Qty: 20 0RF ibuprofen 800 mg tablet 800 mg PO Q8H PRN (Reason: See Comments) 10 Days Qty: 30 0RF Continued labetalol 100 mg tablet 100 mg PO BID folic acid 1 mg tablet 1 mg PO QDAY pren vit comb.1-iron cb-FA-DSS 90-1-50 mg tablet 1 tab PO QDAY Discontinued ciprofloxacin HCl [Cipro] 500 mg tablet 500 mg PO BID Qty: 14 0RF metformin 500 mg tablet 500 mg PO QDAY metformin 500 mg Tablet 500 mg PO BIDAC Qty: 90 0RF labetalol 100 mg Tablet 200 mg PO TID Qty: 90 0RF Referrals: No Primary/Family,Physician [Primary Care Provider] - Patient/Caregiver Discharge Instructions Discharge Activity: activity as tolerated and other Other Discharge Activity Instructions:: vaginal rest and no heavy lifting more than 10 pounds for 6 weeks Other Discharge Diet Instructions: Regular diet that minimizes simple sugars and ultra-processed carbohydrates Education Materials: After a Vaginal Print Language: Kinyarwanda Activity Restrictions/Additional Instructions: follow up in clinic in 2 weeks for visit, call clinic for appointment. will need to do glucose test 6 weeks after delivery for history of gestational diabetes Stand Alone Forms: [facility] Award Info., Patient Portal Info Letter Discharge Order Discharge Orders: Discharge (Routine); Ordered 11/18/24 Ordered By: Sarai Marroquin Planned Discharge Date 11/18/24 (2) labor in third trimester Qualifiers: labor delivery status: with delivery in third trimester Fetus number: single or unspecified fetus Qualified Code(s): O60.14X0 - labor third trimester with delivery third trimester, not applicable or unspecified (3) Obesity affecting Qualifiers: Trimester: third trimester Obesity type affecting : other obesity Qualified Code(s): O99.213 - Obesity complicating , third trimester; E66.89 - Other obesity not elsewhere classified (4) Gestational diabetes mellitus (GDM) Qualifiers: Gestational diabetes mellitus control: oral hypoglycemic-controlled Trimester: third trimester Qualified Code(s): O24.415 - Gestational diabetes mellitus in , controlled by oral hypoglycemic drugs
== END 2024-11-18 11:25 | disposition home or self-care (01) | DRG 560 ==
LOC: S4SX 08:13 → S4NX 09:47
PROVIDERS: Admitting Provider Obstetrics & Gynecology; Visit Provider Obstetrics & Gynecology
DX: O42.013 Preterm premature rupture of membranes, onset of labor within 24 hours of rupture, third trimester (principal); O60.14X0 Preterm labor third trimester with preterm delivery third trimester, not applicable or unspecified; E66.89 Other obesity not elsewhere classified; O99.214 Obesity complicating childbirth; Z37.0 Single live birth; Z3A.35 35 weeks gestation of pregnancy; O24.429 Gestational diabetes mellitus in childbirth, unspecified control; O71.82 Other specified trauma to perineum and vulva; O13.4 Gestational [pregnancy-induced] hypertension without significant proteinuria, complicating childbirth; Z79.84 Long term (current) use of oral hypoglycemic drugs; Z79.899 Other long term (current) drug therapy
CPT/HCPCS: 36415; 80053; 80307; 84112; 84550; 85025; 85384; 85610; 85730; 86780; 86850; 86900; 86901; J0290; J3490; J7120; S0191; A9270

== ENCOUNTER 2024-11-18 15:09 | Emergency (ER) | payer MEDICAID, SELFPAY ==
[2024-11-18 15:30] VITALS: BP 146/93; PULSE 87; RESP 17; TEMP 36.9; O2SAT 98; BMI 39.4
--- NOTE | 2024-11-18 15:53 | PD.EDHA ---
ED Headache RME/HPI General Chief Complaint: Headache Stated Complaint: HEADACHE, JEEVAN. SHOULDER PAIN Time Seen by Provider: 11/18/24 15:13 Arrival date/time: 11/18/24 15:09 RME / HPI RME / HPI Narrative: 24-year-old female presents to the emergency department with complaint of posterior headache and bilateral shoulder pain. Onset this morning. Onset was gradual and headache has been gradually worsening. Pain described as throbbing. Patient states that she gave yesterday and was just discharged from maternity. No thunderclap onset headache. It is not the worst headache of her life. No fevers. Denies nausea or vomiting. No abdominal pain. Related Data Home Medications ?Medication ?Instructions ?Recorded ?Confirmed folic acid 1 mg tablet 1 mg PO QDAY 10/28/24 10/28/24 labetalol 100 mg tablet 100 mg PO BID 10/28/24 10/28/24 pren vit comb.1-iron cb-FA-DSS 90 1 tab PO QDAY 10/28/24 10/28/24 mg-1 mg-50 mg tablet Previous Rx's ?Medication ?Instructions ?Recorded docusate sodium 100 mg capsule 100 mg PO BID 10 days #20 caps 11/18/24 ibuprofen 800 mg tablet 800 mg PO Q8H PRN See Comments 10 11/18/24 days #30 tabs Allergies Allergy/AdvReac Type Severity Reaction Status Date / Time No Known Allergies Allergy Verified 11/18/24 15:10 Review of Systems Review of Systems Systems Reviewed: All systems reviewed, normal except as documented Past Medical History Surgical History SURGICAL: Negative Section OTHER SURGICAL HX: denies Social History SOCIAL: No ETOH, tobacco or illicit drug use Past Medical History Comments PMH COMMENT: -Obesity, starting BMI 38 -Pre-diabetes A1c 6.1 ED Exam Narrative Physical exam: Constitutional: no acute distress, age appropriate, non-toxic Eyes: PERRL, conjunctivae w/o pallor, EOMI. subconjunctival hematoma noted right conjunctiva HENT: normocephalic, atraumatic. Oral mucosa moist Respiratory Effort: no stridor, effort normal, no retractions Breath sounds: Clear bilaterally; No rales, No rhonchi, No wheezing Cardiovascular: regular rhythm, S1 and S2 normal, no murmur Musculoskeletal: no deformities, no swelling, no LE edema Skin: warm, dry; No rash Neurology: alert, oriented X 4. Normal gait. Moves all extremities spontaneously. Cranial nerves II to XII intact. 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 No facial droop. Psychology: cooperative, normal mood Course Quality Measures none Orders Category Date Time Status Acetaminophen Tab [Tylenol ES Tab] Med 11/18/24 15:45 Discontinued 1,000 mg PO X1 ONE Ibuprofen Tab [Motrin Tab] Med 11/18/24 15:45 Discontinued 600 mg PO X1 ONE Vital Signs Vital signs: Vital Signs Temperature 98.4 F 11/18/24 15:30 Pulse Rate 87 11/18/24 15:30 Respiratory Rate 17 11/18/24 15:30 Blood Pressure 146/93 H 11/18/24 15:30 Pulse Oximetry (%) 98 11/18/24 15:30 Oxygen Delivery Method Room Air 11/18/24 15:30 Headache MDM Narrative MDM Narrative:: Patient with history as above presented with headache. History obtained from patient. Patient was nontoxic, stable. Ambulatory. Exam as above. Neurologic exam reassuring against acute stroke. Reviewed external records. Differential diagnosis considered. Overall presentation is consistent with low risk headache. Low suspicion for meningitis, intracranial hemorrhage, stroke, or other serious pathology. Considered head CT, but not indicated given the above. Patient was treated with headache medications with improvement in symptoms. Consideration was given for admission, but the patient was stable for outpatient management. Disposition: Discussed need to follow up diagnostics, including incidental findings. Discharged with instructions to obtain outpatient follow up of patient?s symptoms and findings, with strict return precautions if patient develops new or worsening symptoms. Patient data External records reviewed:: [facility] previous records Clinical information provided by:: patient Social determinants that could affect healthcare access:: none Patient has the following chronic illnesses:: Gestational diabetes How is presenting disease/condition affected by chronic disease/condition?: uneffected by Evaluation data The following diagnostics were reviewed and interpreted by me:: other (specify) (N/A) Lab and/or radiology exams considered but not ordered:: See MDM Interpretation Summary: N/A Medications / Prescriptions Medications or Prescriptions considered but not ordered:: None Medication administrations:: Medication Administration History Discontinued Medications Acetaminophen (Acetaminophen 500 Mg Tablet) 1,000 mg PO X1 ONE Stop: 11/18/24 15:46 Ibuprofen (Ibuprofen Tab 600 Mg Tablet) 600 mg PO X1 ONE Stop: 11/18/24 15:46 See above Consultations Consultation(s) initiated? (list below): No Diagnosis Differential diagnosis headache: migraine, tension headache, subarachnoid hemorrhage, headache and meningitis Most likely diagnosis given after review of the tests above:: Tension headache Admission Indicated Admission indicated?: not indicated Admission Request Was there a request for admission?: No Disposition Plan Disposition Plan: Discharge Discharge Attestation Discharge Attestation: The patient and all family members were given an opportunity to ask questions and understood the discharge instructions. Discharge instructions specifically effects, indications for sooner follow up or return to the emergency department, and the expected course of current diagnosis. Patient condition: Stable Discharge Plan Plan Patient Disposition: HOME (Self Care) Prescriptions/Referrals Prescriptions/Med Rec: No Action labetalol 100 mg tablet 100 mg PO BID folic acid 1 mg tablet 1 mg PO QDAY pren vit comb.1-iron cb-FA-DSS 90-1-50 mg tablet 1 tab PO QDAY docusate sodium 100 mg Capsule 100 mg PO BID 10 Days Qty: 20 0RF ibuprofen 800 mg tablet 800 mg PO Q8H PRN (Reason: See Comments) 10 Days Qty: 30 0RF Problem List Clinical Impression: Tension headache Patient/Caregiver Discharge Instructions Education Materials: ED Headache, Tension Additional Instructions: Follow-up with primary care if symptoms persist. If your headache is not getting better or if it gets worse suddenly return to the ED. Return at anytime for any new or worsening symptoms Print Language: Thai Stand Alone Forms: [facility] Clancy Info., Patient Portal Info Letter
[2024-11-18] MEDS: IBUPROFEN TAB 600 MG TABLET PO (16:00)
[2024-11-18] MEDS: ACETAMINOPHEN 500 MG TABLET 1000 MG PO (16:00)
== END 2024-11-18 16:11 | disposition home or self-care (01) ==
LOC: SERX 16:14
PROVIDERS: Emergency Provider Emergency Medicine; PCP Family Medicine
DX: G44.209 Tension-type headache, unspecified, not intractable (principal)
CPT/HCPCS: 99282; A9270